=== PATIENT | female | born 1935 | race Caucasian/White ===

== ENCOUNTER 2016-07-08 15:18 | Inpatient (IN) | payer MEDICARE ==
--- NOTE | 2016-07-08 15:29 | ER Document Report ---
ED Medical Screen (RME) - General Stated Complaint: ABDOMINAL PAIN,CHEST PAIN Mode of Arrival: Ambulatory Information source: Patient Notes: pt c/o indigestion. Pt reports pain to midsternal epigastric area. Pt with labored resp. Pt vomiting in triage. hx: HTN, anxiety, fibro Physical Exam - Abdominal Tenderness: Tender - epig
--- NOTE | 2016-07-08 16:16 | ER Document Report ---
ED GI/ - General Time seen by provider: 15:55 Mode of Arrival: Ambulatory Information source: Patient TRAVEL OUTSIDE OF THE [place] IN LAST 30 DAYS: No - HPI Patient complains to provider of: Abdominal pain, Other - Acute Indigestion Onset: This morning Location: Epigastric Associated symptoms: Other - see above <TOBIAS VELEZ - Last Filed: 07/08/16 16:52> <ANGELIA MAIN - Last Filed: 07/08/16 20:38> <DAIANA ARCE - Last Filed: 07/09/16 01:04> - General Chief Complaint: Epigastric Pain Stated Complaint: ABDOMINAL PAIN,CHEST PAIN Notes: 80 year old female with history of hypertension and polyps presents to the ED complaining of "acute indigestion" that started this morning and has gotten progressively worse. Patient states that her bowels "feel raw" and that her stomach is in a "knot". Patient states that she doesn't feel like eating anything and explains that she hasn't had anything to eat today. Patient is also experiencing epigastric abdominal pain, intermittent diarrhea and constipation, and vomiting (in the ED), but denies nausea and shortness of breath. Patient explains that she felt "slightly" better after vomiting. Patient 's last bowel movement was this morning. Patient additionally complains of eye pain secondary to a staph infection. Patient was given steroid eye drops 1 week ago, but to no relief. Patient denies any cardiac history, cholecystectomy, or diabetes. Patient has a surgical history of an appendectomy, hysterectomy, and vertebral fusion. (TOBIAS VELEZ) Past Medical History - General Information source: Patient - Social History Smoking Status: Current Every Day Smoker Cigarette use (# per day): Yes - 0.5-0.75 ppd Family History: Reviewed & Not Pertinent Patient has suicidal ideation: No Patient has homicidal ideation: No - Past Medical History Cardiac Medical History: Reports: Hx Hypercholesterolemia, Hx Hypertension Denies: Hx Heart Attack Pulmonary Medical History: Reports: Hx Pneumonia Endocrine Medical History: Denies: Hx Diabetes Mellitus Type 2 GI Medical History: Reports: Hx Gastroesophageal Reflux Disease Past Surgical History: Reports: Hx Appendectomy, Hx Hysterectomy, Hx Orthopedic Surgery - BACK X 2. Denies: Hx Cholecystectomy <TOBIAS VELEZ - Last Filed: 07/08/16 16:52> Review of Systems - Review of Systems Constitutional: No symptoms reported EENT: No symptoms reported Cardiovascular: No symptoms reported Respiratory: No symptoms reported. denies: Short of breath Gastrointestinal: See HPI, Abdominal pain, Diarrhea, Vomiting, Constipation. denies: Nausea Genitourinary: No symptoms reported Female Genitourinary: No symptoms reported Musculoskeletal: No symptoms reported Skin: No symptoms reported Hematologic/Lymphatic: No symptoms reported Neurological/Psychological: No symptoms reported <TOBIAS VEELZ - Last Filed: 07/08/16 16:52> Physical Exam - General General appearance: Alert In distress: None - HEENT Head: Normocephalic, Atraumatic Eyes: Normal Extraocular movements intact: Yes Pupils: PERRL - Respiratory Respiratory status: No respiratory distress Breath sounds: Normal - Cardiovascular Rhythm: Regular Heart sounds: Normal auscultation Pulses: Normal: Radial, Posterior tibial, Dorsalis pedis Normal capillary refill: Yes - Abdominal Inspection: Normal Distension: No distension Tenderness: Nontender - no RUQ tenderness to palpation, Tender - mild epigastric tenderness to palpation. No: Ceron's sign - Back Back: Normal - Extremities General upper extremity: Normal inspection, Normal ROM General lower extremity: Normal inspection, Normal ROM - Neurological Neuro grossly intact: Yes Cognition: Normal Orientation: AAOx4 Hamilton Coma Scale Eye Opening: Spontaneous [place] Coma Scale Verbal: Oriented [place] Coma Scale Motor: Obeys Commands Merline Coma Scale Total: 15 Speech: Normal - Psychological Associated symptoms: Normal affect, Normal mood - Skin Skin Temperature: Warm Skin Moisture: Dry Skin Color: Normal <TOBIAS VELEZ - Last Filed: 07/08/16 16:52> <ANGELIA MAIN - Last Filed: 07/08/16 20:38> <DAIANA ARCE - Last Filed: 07/09/16 01:04> - Vital signs Vitals: Temp Pulse Resp BP Pulse Ox 98.0 F 98 20 144/91 H 98 07/08/16 15:28 07/08/16 15:28 07/08/16 15:28 07/08/16 15:28 07/08/16 15:28 (TOBIAS VELEZ) (ANGELIA MAIN) (DAIANA ARCE) - Cardiovascular Notes: Good perfusion distally with equal bilateral pulses. (TOBIAS VELEZ) Course - Laboratory Result Diagrams: 07/08/16 16:20 07/08/16 16:20 <TOBIAS VELEZ - Last Filed: 07/08/16 16:52> - Laboratory Result Diagrams: 07/08/16 16:20 07/08/16 16:20 <ANGELIA MAIN - Last Filed: 07/08/16 20:38> - Laboratory Result Diagrams: 07/08/16 16:20 07/08/16 16:20 <DAIANA ARCE - Last Filed: 07/09/16 01:04> - Re-evaluation Re-evalutation: 07/08/16 20:38 I personally performed the services described in the documentation, reviewed and edited the documentation which was dictated to my scribe in my presence, and it accurately records my words and actions. Patient seen and evaluated for epigastric abdominal pain rather abrupt onset this afternoon not chest pain not shortness of breath some improvement with GI cocktail tenderness in the epigastrium mild right upper quadrant no guarding rebound rigidity or peritoneal signs on serial abdominal examination white count elevation of 20,000 no urinary tract infection CT scan shows a tiny gallstone no free air questionable renal cyst. Dr. Rios contacted once gallbladder ultrasound which were ordering at this point pain control. To come and evaluate the patient. Signing out for disposition to Dr. Prince likely pending admission. (ANGELIA MAIN) 07/09/16 01:02 I reassessed the patient and found her awake, shifting in the bed and appearing somewhat uncomfortable. She told me "I just can't get comfortable with this abdominal pain". Her lactate is noted be normal. Repeat abdominal exam does show diffuse upper quadrant abdominal pain without any focal tenderness the right upper quadrant, epigastrium or left upper quadrant. All quadrants in the upper regions appear equally uncomfortable and she does have some mild left CVA tenderness. Vitals at the time of my assessment to hypertension but are otherwise unremarkable. Review of her laboratories does demonstrate a prominent leukocytosis but again is otherwise unremarkable. Given her ongoing abdominal pain and unclear etiology at this time, our on-call surgeon Dr. Roberts has agreed to admit this patient for observation. (DAIANA ARCE) - Vital Signs Vital signs: Temp Pulse Resp BP Pulse Ox 98.0 F 89 22 H 175/79 H 95 07/08/16 15:28 07/08/16 18:48 07/08/16 19:16 07/08/16 19:16 07/08/16 19:56 (TOBIAS VELEZ) (ANGELIA MAIN) (DAIANA ARCE) - Laboratory Laboratory results interpreted by me: 07/08/16 07/08/16 07/08/16 16:20 16:20 19:42 WBC 20.4 H Seg Neuts % (Manual) 90 H Band Neutrophils % 1 L Lymphocytes % (Manual) 7 L Monocytes % (Manual) 2 L Abs Neuts (Manual) 18.6 H Carbon Dioxide 20 L Glucose 168 H Urine Protein 30 H Urine Glucose (UA) 50 H (ANGELIA MAIN) (DAIANA ARCE) Discharge <TOBIAS VELEZ - Last Filed: 07/08/16 16:52> <ANGELIA MAIN - Last Filed: 07/08/16 20:38> - Discharge [facility] <DAIANA ARCE - Last Filed: 07/09/16 01:04> - Discharge Clinical Impression: Pain of upper abdomen Condition: Fair Disposition: ADMITTED OBSERVATION Scribe Documentation - Scribe Written by Scribe:: Nury Miller, 07/08/2016 17:06 acting as scribe for :: Renny <TOBIAS VELEZ - Last Filed: 07/08/16 16:52>
[2016-07-08] MEDS ORDERED: MAG HYDROX/AL HYDROX/SIMETH SUSP 30 ML UDCUP PO ONE (16:17)
[2016-07-08] MEDS ORDERED: LIDOCAINE 2% VISCOUS SOLN 20 ML UDCUP PO ONE (16:17)
[2016-07-08] MEDS ORDERED: METOCLOPRAMIDE HCL ORAL SOLN 10 MG/10 ML UDCUP PO ONE (16:17)
[2016-07-08] MEDS ORDERED: ONDANSETRON HCL INJ/PF 4 MG/2 ML SDV IV ONE (16:22)
[2016-07-08 16:35] LABS: HEMATOCRIT 38.9 % (36.0-47.0); HEMOGLOBIN 12.8 g/dL (12.0-15.5); HGB HCT DIFFERENCE -0.5; MEAN CORPUSCULAR HEMOGLOBIN 27.9 pg (27.0-33.4); MEAN CORPUSCULAR HGB CONC 32.8 g/dL (32.0-36.0); MEAN CORPUSCULAR VOLUME 85 fl (80-97); RED BLOOD COUNT 4.59 10^6/uL (3.72-5.28); WHITE BLOOD COUNT 20.4 10^3/uL (4.0-10.5)
[2016-07-08 16:54] LABS: ALANINE AMINOTRANSFERASE 24 U/L (9-52); ALBUMIN 4.5 g/dL (3.5-5.0); ALKALINE PHOSPHATASE 88 U/L (38-126); ANION GAP 17 (5-19); ASPARTATE AMINO TRANSFERASE 20 U/L (14-36); BILIRUBIN,TOTAL 0.5 mg/dL (0.2-1.3); BLOOD UREA NITROGEN 11 mg/dL (7-20); CALCIUM 9.3 mg/dL (8.4-10.2); CARBON DIOXIDE 20 mmol/L (22-30); CHLORIDE 102 mmol/L (98-107); CREATINE KINASE 63 U/L (30-135); CREATININE RESULT 0.54 mg/dL (0.52-1.25); GLUCOSE 168 mg/dL (75-110); POTASSIUM 3.6 mmol/L (3.6-5.0); SODIUM 139.2 mmol/L (137-145); TOTAL PROTEIN 7.3 g/dL (6.3-8.2)
[2016-07-08 16:56] LABS: BAND NEUTROPHILS % (MANUAL) 1 % (3-5); BASOPHILS % (MANUAL) 0 % (0-2); EOSINOPHILS % (MANUAL) 0 % (0-6); LYMPHOCYTES % (MANUAL) 7 % (13-45); RBC MORPHOLOGY COMMENT NORMO-CYTIC/CHROMIC; TOTAL CELLS COUNTED 100
[2016-07-08 17:11] LABS: CREATINE KINASE MB 0.81 ng/mL (<4.55); TROPONIN I < 0.012 ng/mL
[2016-07-08 20:05] LABS: APPEARANCE,URINE CLEAR; BILIRUBIN,URINE NEGATIVE (NEGATIVE); GLUCOSE, URINE 50 mg/dL (NEGATIVE); KETONES,URINE NEGATIVE (NEGATIVE); LEUKOCYTE ESTERASE,URINE NEGATIVE (NEGATIVE); NITRITE,URINE NEGATIVE (NEGATIVE); PROTEIN,URINE 30 mg/dL (NEGATIVE); URINE SPECIFIC GRAVITY 1.027; UROBILINOGEN,URINE NEGATIVE mg/dL (<2.0)
[2016-07-08] MEDS ORDERED: FENTANYL CITRATE INJ/PF 100 MCG/2 ML AMPUL IV ONE (20:41)
--- NOTE | 2016-07-08 22:44 | EKG REPORT ---
SEVERITY:- ABNORMAL ECG - SINUS RHYTHM NONSPECIFIC ST-T CHANGES ANTEROLATERAL LEADS. : Confirmed by: Jorge L Melton MD 08-Jul-2016 22:44:10
[2016-07-09] MEDS ORDERED: LIDOCAINE 2% VISCOUS SOLN 20 ML UDCUP PO ONE (00:53)
[2016-07-09] MEDS ORDERED: METOCLOPRAMIDE HCL ORAL SOLN 10 MG/10 ML UDCUP PO ONE (00:53)
[2016-07-09] MEDS ORDERED: MAG HYDROX/AL HYDROX/SIMETH SUSP 30 ML UDCUP PO ONE (00:53)
[2016-07-09] MEDS: ONDANSETRON HCL INJ/PF 4 MG/2 ML SDV IV PRN ×2 (05:18→11:47)
[2016-07-09] MEDS: MORPHINE SULFATE 10 MG/ML INJ IV PRN ×2 (05:19→11:47)
[2016-07-09] MEDS ORDERED: ERTAPENEM SODIUM 1 GM in NORMAL SALINE 50 ML IV ONE ×2 (05:30→11:15)
[2016-07-09] MEDS: METRONIDAZOLE 500 MG/NS RTU 100 ML IV SCH ×3 (06:53→21:53)
[2016-07-09 08:00] LABS: MEAN CORPUSCULAR HEMOGLOBIN 28.1 pg (27.0-33.4); MEAN CORPUSCULAR HGB CONC 33.4 g/dL (32.0-36.0); MEAN CORPUSCULAR VOLUME 84 fl (80-97); RED BLOOD COUNT 4.64 10^6/uL (3.72-5.28); RED CELL DISTRIBUTION WIDTH 14.1 % (11.5-14.0)
[2016-07-09 08:16] LABS: ALANINE AMINOTRANSFERASE 29 U/L (9-52); ALBUMIN 4.1 g/dL (3.5-5.0); ALKALINE PHOSPHATASE 89 U/L (38-126); ANION GAP 14 (5-19); ASPARTATE AMINO TRANSFERASE 19 U/L (14-36); BILIRUBIN,TOTAL 0.6 mg/dL (0.2-1.3); BLOOD UREA NITROGEN 11 mg/dL (7-20); CALCIUM 9.3 mg/dL (8.4-10.2); CARBON DIOXIDE 26 mmol/L (22-30); CHLORIDE 98 mmol/L (98-107); CREATININE RESULT 0.58 mg/dL (0.52-1.25); GLUCOSE 131 mg/dL (75-110); LIPASE 99.7 U/L (23-300); MAGNESIUM 2.2 mg/dL (1.6-2.3); PHOSPHORUS 3.6 mg/dL (2.5-4.5); POTASSIUM 3.6 mmol/L (3.6-5.0); SODIUM 138.4 mmol/L (137-145)
[2016-07-09 08:46] LABS: THYROID STIMULATING HORMONE 1.69 uIU/mL (0.47-4.68)
[2016-07-09] MEDS: PANTOPRAZOLE SODIUM 40 MG VIAL IV SCH ×2 (09:22→21:53)
[2016-07-09] MEDS ORDERED: ERTAPENEM SODIUM 1 GM in NORMAL SALINE 50 ML IV SCH ×2 (10:00→22:00)
--- NOTE | 2016-07-09 10:18 | PDOC H&P ---
History of Present Illness Admission Date/PCP: 07/09/16 01:04 History of Present Illness: CHRISTIANNE YO is a 80 year old white female with dementia, hyperlipidemia, hypertension, migraines, GERD, vertigo, history of esophagitis, history of pneumonia, hearing loss, lifelong smoker with COPD/asthma. Her history is difficult to obtain due to memory loss. She reports her confusion and memory loss tends to vacillate depending upon whether she is tired or sick. She reports that she's had abdominal problems since adolescence. She reports that vacillating diarrhea and constipation is typical for her. She reports intermittent epigastric and left upper quadrant abdominal pain as well as reflux that has become worse in recent years. She reports that on 07/07/2016 she had [employer] and began having epigastric and left upper quadrant abdominal pain. She then proceeded to have feelings of constipation but then diarrhea. She reports the pain is 8 out of 10. The pain continued throughout the day on 07/08/2016. She presented the emergency room. The pain was constant. It had a burning quality to it. She was also nauseated and vomited in the hospital. She had subjective fevers and chills. CT scan was done which failed to show any specific acute problems. Small gallstone was seen in the gallbladder. She was given 2 GI cocktails which she reports did not relieve the pain. Right upper quadrant ultrasound was performed which did not reveal any acute cholecystitis. She did have a leukocytosis of 20,000. Surgery was consulted for admission and further workup of epigastric and left upper quadrant abdominal pain. Her abdominal history includes a partial colectomy many years ago for what was believed to be a cancerous lesion but turned out to be benign, per her report. She also underwent EGD with diagnosis of reflux esophagitis. She underwent hysterectomy as well. She reports occasional leg swelling, not worse than usual. She reports balance issues which are chronic and related to her vertigo. She also reports that she had eye surgery 6 months ago and 2 weeks ago was put on a short four-day burst and taper of steroids for some residual inflammation of her eyes. Past Medical History Cardiac Medical History: Reports: Hyperlipidema, Hypertension Denies: Myocardial Infarction Pulmonary Medical History: Reports: Asthma, Chronic Obstructive Pulmonary Disease (COPD), Pneumonia EENT Medical History: Reports: Other - Vertigo Neurological Medical History: Reports: Migraine Denies: Ischemic CVA Endocrine Medical History: Denies: Diabetes Mellitus Type 2 GI Medical History: Reports: Gastroesophageal Reflux Disease Psychiatric Medical History: Reports: Tobacco Dependency Past Surgical History Past Surgical History: Reports: Appendectomy, Hysterectomy, Orthopedic Surgery - BACK X 2, Other - Partial colectomy, I surgery, EGD Denies: Cholecystectomy Social History Information Source: Patient Lives with: Alone - In [place] Smoking Status: Current Every Day Smoker Cigarettes Packs Per Day: 0.7 Frequency of Alcohol Use: None Hx Recreational Drug Use: No Drugs: None Hx Prescription Drug Abuse: No Family History Family History: Hypertension, Malignancy Parental Family History Reviewed: Yes Children Family History Reviewed: Yes Sibling(s) Family History Reviewed.: Yes Medication/Allergy Allergies/Adverse Reactions: Penicillins Allergy (Verified 07/09/16 03:55) Sulfa (Sulfonamide Antibiotics) Allergy (Verified 07/09/16 03:55) Review of Systems All systems: reviewed and no additional remarkable complaints except as stated Physical Exam Vital Signs: Temp Pulse Resp BP Pulse Ox 97.6 F 89 14 175/78 H 91 L 07/09/16 03:54 07/08/16 18:48 07/09/16 02:03 07/09/16 03:01 07/09/16 03:01 General appearance: PRESENT: no acute distress Head exam: PRESENT: normocephalic Eye exam: PRESENT: EOMI Mouth exam: PRESENT: tongue midline Teeth exam: PRESENT: other - Upper and lower dentures Neck exam: ABSENT: JVD, lymphadenopathy, tenderness, thyromegaly Respiratory exam: PRESENT: other - Mild left upper coarse lung sounds and overall decreased sounds associated with emphysematous/obstructive change Cardiovascular exam: PRESENT: RRR GI/Abdominal exam: PRESENT: soft, tenderness - Left upper quadrant and epigastric pain with some radiation to the right posterior costovertebral angle.. ABSENT: distended, guarding, Ceron's sign, rebound Extremities exam: ABSENT: pedal edema Musculoskeletal exam: PRESENT: normal inspection. ABSENT: deformity Neurological exam: PRESENT: alert, other - Mild dementia with memory deficits. Unable to remember medications. She recalls most history with multiple prompts and efforts to clarify inconsistencies, but unable to recall timing or specifics of certain past surgeries or medical treatment. Psychiatric exam: PRESENT: appropriate affect, normal mood Focused psych exam: ABSENT: psychomotor agitation Skin exam: ABSENT: jaundice, rash Results Impressions: Chest X-Ray 07/08/16 15:26 IMPRESSION: NO ACUTE RADIOGRAPHIC FINDING IN THE CHEST. Abdomen/Pelvis CT 07/08/16 16:22 IMPRESSION: Tiny gallstone. Left renal cyst is noted above. Other findings as noted above Abdomen Ultrasound 07/08/16 20:42 IMPRESSION: Findings consistent with a gallstone. No other significant findings. Status: Image reviewed by me Assessment & Plan - Diagnosis (1) Epigastric abdominal pain of unknown etiology Is this a current diagnosis for this admission?: YesPlan: Differential diagnosis includes peptic ulcer disease/gastritis, symptomatic cholelithiasis, hepatic or pancreatic etiology. I reviewed CT scan and right upper quadrant ultrasound images as well as radiologist report. Benign- appearing kidney cyst and small gallstones were seen. No acute pathology. She did not respond well to a GI cocktail, in fact she said it made the pain worse. Leukocytosis of 20,000. We will admit, start IV Protonix and IV antibiotics, make her nothing by mouth, give IV fluids, SCDs, ambulate, incentive spirometer , recheck labs. We will consider upper GI with small bowel follow-through versus a HIDA scan depending on her symptoms and lab results. Hospitalist consult to manage multiple comorbidities. Her lung disease is undiagnosed/underdiagnosed. She reports taking inhaler but cannot remember which one and cannot provide this specifics of whether her lung disease is COPD versus emphysema versus adenoma versus combination. She does have history of multiple bouts of pneumonia. (2) Left upper quadrant pain Is this a current diagnosis for this admission?: Yes (3) GERD (gastroesophageal reflux disease) Qualifiers: Esophagitis presence: with esophagitis Qualified Code(s): K21.0 - Gastro-esophageal reflux disease with esophagitis Is this a current diagnosis for this admission?: Yes (4) Hypertension Is this a current diagnosis for this admission?: Yes (5) Hyperlipidemia Is this a current diagnosis for this admission?: Yes (6) History of pneumonia Is this a current diagnosis for this admission?: Yes (7) Moderate cigarette smoker (10-19 per day) Is this a current diagnosis for this admission?: Yes (8) Vertigo Is this a current diagnosis for this admission?: Yes (9) Migraines Is this a current diagnosis for this admission?: Yes
[2016-07-09] MEDS: NICOTINE 21 MG/24 HR PATCH.TD24 TD PRN (10:59)
[2016-07-09] MEDS: RINGERS SOLUTION,LACTATED 1,000 ML IV PRN ×2 (10:59→21:53)
[2016-07-09] MEDS ORDERED: HYDRALAZINE HCL INJ/PF 20 MG/1 ML SDV IV PRN (15:29)
--- NOTE | 2016-07-09 15:31 | PDOC CONSULTATION ---
Consultation Consult Date: 07/09/16 Attending physician:: SURGICAL SURGICALIST MD Consult reason:: To aid in the medical management of the patient with epigastric pain. History of Present Illness Admission Date/PCP: 07/09/16 04:27 Patient complains of: Epigastric pain History of Present Illness: CHRISTIANNE YO is a 80 year old white female with dementia, hyperlipidemia, hypertension, migraines, GERD, vertigo, history of esophagitis, history of pneumonia, hearing loss, lifelong smoker with COPD/asthma. Her history is difficult to obtain due to memory loss. She reports her confusion and memory loss tends to vacillate depending upon whether she is tired or sick. She reports that she's had abdominal problems since adolescence. She reports that vacillating diarrhea and constipation is typical for her. She reports intermittent epigastric and left upper quadrant abdominal pain as well as reflux that has become worse in recent years. She reports that on 07/07/2016 she had [employer] and began having epigastric and left upper quadrant abdominal pain. She then proceeded to have feelings of constipation but then diarrhea. She reports the pain is 8 out of 10. The pain continued throughout the day on 07/08/2016. She presented the emergency room. The pain was constant. It had a burning quality to it. She was also nauseated and vomited in the hospital. She had subjective fevers and chills. CT scan was done which failed to show any specific acute problems. Small gallstone was seen in the gallbladder. She was given 2 GI cocktails which she reports did not relieve the pain. Right upper quadrant ultrasound was performed which did not reveal any acute cholecystitis. She did have a leukocytosis of 20,000. Surgery was consulted for admission and further workup of epigastric and left upper quadrant abdominal pain. Her abdominal history includes a partial colectomy many years ago for what was believed to be a cancerous lesion but turned out to be benign, per her report. She also underwent EGD with diagnosis of reflux esophagitis. She underwent hysterectomy as well. She reports occasional leg swelling, not worse than usual. She reports balance issues which are chronic and related to her vertigo. She also reports that she had eye surgery 6 months ago and 2 weeks ago was put on a short four-day burst and taper of steroids for some residual inflammation of her eyes. MEDICATIONS: The medications listed in this document may have been auto- populated from previous contact and may not been verified or reconciled. This may not be an accurate reflection of the patient's home medication(s); however, authors are unable to edit or delete the medications listed in this document as "home medications". Past Medical History Cardiac Medical History: Reports: Hyperlipidema, Hypertension Pulmonary Medical History: Reports: Asthma, Chronic Obstructive Pulmonary Disease (COPD), Pneumonia EENT Medical History: Reports: Other - Vertigo Neurological Medical History: Reports: Migraine GI Medical History: Reports: Gastroesophageal Reflux Disease Psychiatric Medical History: Reports: Tobacco Dependency Past Surgical History Past Surgical History: Reports: Appendectomy, Hysterectomy, Orthopedic Surgery - BACK X 2, Other - Partial colectomy, I surgery, EGD Social History Information Source: Patient Occupation: Retired Lives with: Alone - In [place] Smoking Status: Current Every Day Smoker Cigarettes Packs Per Day: 0.7 Number of Years Smokin Frequency of Alcohol Use: None Hx Recreational Drug Use: No Drugs: None Hx Prescription Drug Abuse: No - Advance Directive Resuscitation Status: Full Code Surrogate healthcare decision maker:: Daughter Family History Family History: Reviewed & Not Pertinent, Hypertension, Malignancy Parental Family History Reviewed: Yes Children Family History Reviewed: Yes Sibling(s) Family History Reviewed.: Yes Medication/Allergy Allergies/Adverse Reactions: Penicillins Allergy (Verified 07/09/16 03:55) Sulfa (Sulfonamide Antibiotics) Allergy (Verified 07/09/16 03:55) Review of Systems Constitutional: ABSENT: chills, fever(s), headache(s), weight gain, weight loss Eyes: ABSENT: visual disturbances Ears: ABSENT: hearing changes Cardiovascular: ABSENT: chest pain, dyspnea on exertion, edema, orthropnea, palpitations Respiratory: ABSENT: cough, hemoptysis Gastrointestinal: PRESENT: abdominal pain, heartburn, nausea, vomiting. ABSENT : constipation, diarrhea, dysphagia, hematemesis, hematochezia Genitourinary: ABSENT: dysuria, hematuria Musculoskeletal: ABSENT: joint swelling Integumentary: ABSENT: rash, wounds Neurological: ABSENT: abnormal gait, abnormal speech, confusion, dizziness, focal weakness, syncope Psychiatric: ABSENT: anxiety, depression, homidical ideation, suicidal ideation Endocrine: ABSENT: cold intolerance, heat intolerance, polydipsia, polyuria Hematologic/Lymphatic: ABSENT: easy bleeding, easy bruising Physical Exam Vital Signs: Temp Pulse Resp BP Pulse Ox 98.2 F 78 19 168/82 H 96 07/09/16 11:32 07/09/16 11:32 07/09/16 11:32 07/09/16 11:32 07/09/16 11:32 Intake & Output 07/07/16 07/08/16 07/09/16 23:59 23:59 23:59 Intake Total 0 Balance 0 General appearance: PRESENT: no acute distress, cooperative, well-developed, well-nourished Head exam: PRESENT: atraumatic, normocephalic Eye exam: PRESENT: conjunctiva pink, EOMI, PERRLA. ABSENT: scleral icterus Ear exam: PRESENT: normal external ear exam Mouth exam: PRESENT: moist, tongue midline Neck exam: ABSENT: carotid bruit, JVD, lymphadenopathy, thyromegaly Respiratory exam: PRESENT: clear to auscultation brando. ABSENT: rales, rhonchi, wheezes Cardiovascular exam: PRESENT: RRR. ABSENT: diastolic murmur, rubs, systolic murmur Pulses: PRESENT: normal dorsalis pedis pul Vascular exam: PRESENT: normal capillary refill GI/Abdominal exam: PRESENT: firm, normal bowel sounds, soft, tenderness - Left upper quadrant and epigastrium. ABSENT: distended, guarding, mass, organolmegaly, rebound Rectal exam: PRESENT: deferred Extremities exam: PRESENT: full ROM. ABSENT: calf tenderness, clubbing, pedal edema Neurological exam: PRESENT: alert - A little delayed, very hard of hearing, awake, oriented to person, oriented to place, oriented to time, oriented to situation, CN II-XII grossly intact. ABSENT: motor sensory deficit Psychiatric exam: PRESENT: appropriate affect, normal mood. ABSENT: homicidal ideation, suicidal ideation Skin exam: PRESENT: dry, intact, warm. ABSENT: cyanosis, rash Results Laboratory Results: 07/09/16 07:50 07/09/16 07:50 07/09/16 07/09/16 07/09/16 07:50 07:50 07:50 WBC 18.0 H RBC 4.64 Hgb 13.0 Hct 39.0 MCV 84 MCH 28.1 MCHC 33.4 RDW 14.1 H Plt Count 296 Sodium 138.4 Potassium 3.6 Chloride 98 Carbon Dioxide 26 Anion Gap 14 BUN 11 Creatinine 0.58 Est GFR ( Amer) > 60 Est GFR (Non-Af Amer) > 60 Glucose 131 H Calcium 9.3 Phosphorus 3.6 Magnesium 2.2 Total Bilirubin 0.6 AST 19 ALT 29 Alkaline Phosphatase 89 Total Protein 7.0 Albumin 4.1 Lipase 99.7 TSH 1.69 Free T4 1.19 Impressions: Chest X-Ray 07/08/16 15:26 IMPRESSION: NO ACUTE RADIOGRAPHIC FINDING IN THE CHEST. Abdomen/Pelvis CT 07/08/16 16:22 IMPRESSION: Tiny gallstone. Left renal cyst is noted above. Other findings as noted above Abdomen Ultrasound 07/08/16 20:42 IMPRESSION: Findings consistent with a gallstone. No other significant findings. Assessment & Plan - Diagnosis (1) Epigastric abdominal pain of unknown etiology Is this a current diagnosis for this admission?: YesPlan: Management as per surgery (2) GERD (gastroesophageal reflux disease) Qualifiers: Esophagitis presence: with esophagitis Qualified Code(s): K21.0 - Gastro-esophageal reflux disease with esophagitis Is this a current diagnosis for this admission?: YesPlan: Will continue PPI therapy (4) Hyperlipidemia Qualifiers: Hyperlipidemia type: unspecified Qualified Code(s): E78.5 - Hyperlipidemia, unspecified Is this a current diagnosis for this admission?: YesPlan: This is reported history however upon review of the external medication list appear the patient has been taking any medications. (5) Hypertension Qualifiers: Hypertension type: unspecified secondary hypertension Qualified Code (s): I15.9 - Secondary hypertension, unspecified; I15 - Secondary hypertension Is this a current diagnosis for this admission?: YesPlan: Again upon review of the external medication list does not appear the patient has been taking any medications for this. However were waiting for family to possibly bring medications for reconciliation. Will add IV when necessary coverage. (6) Migraines Is this a current diagnosis for this admission?: No (8) Vertigo Is this a current diagnosis for this admission?: YesPlan: Currently asymptomatic (9) Tobacco dependency Is this a current diagnosis for this admission?: YesPlan: Spent 3 minutes discussing smoking cessation education. The patient declines any pharmacological intervention at this time however will add a PRN nicotine patch. - Time Time Spent with patient: on this visit including assessment, plan, physical examination, and patient education is 45 minutes. Time Spent: 50 to 70 Minutes Medications reviewed and adjusted accordingly: Yes Anticipated discharge: Home Within: Other Disposition: The patient is a full code. Pending patient's symptomatology and diagnostic findings will reevaluate in the a.m.
[2016-07-09] MEDS ORDERED: TRAMADOL HCL 50 MG TABLET PO PRN (17:49)
[2016-07-09] MEDS ORDERED: ACETAMINOPHEN 325 MG TABLET PO PRN (17:51)
--- NOTE | 2016-07-09 17:52 | PDOC PROGRESS REPORT ---
Subjective Progress Note for:: 07/09/16 Subjective:: Patient continues to complain of epigastric and left upper quadrant pain. Reports nausea, but did not vomit. Denies BM or flatus. Her daughter has arrived from [place]. Daughter reports that the patient smokes more than she reports. Daughter reports she is aware of her mother's health issues including dementia, is concerned that her mother minimizes her issues and is occasionally noncompliant, and reports that she has been trying unsuccessfully to convince her mother to move close to her in [place]. Physical Exam Vital Signs: Temp Pulse Resp BP Pulse Ox 98.1 F 78 20 159/79 H 91 L 07/09/16 16:07 07/09/16 16:07 07/09/16 16:07 07/09/16 16:07 07/09/16 16:07 Intake & Output 07/08/16 07/09/16 07/10/16 06:59 06:59 06:59 Intake Total 0 Balance 0 General appearance: PRESENT: obese Head exam: PRESENT: normocephalic Eye exam: PRESENT: EOMI Ear exam: PRESENT: other - Poor hearing despite hearing aids. Mouth exam: PRESENT: tongue midline Teeth exam: PRESENT: other - Upper and lower dentures GI/Abdominal exam: PRESENT: distended, soft, tenderness - Moderate to severe tenderness in epigastric and right upper quadrant, but not peritoneal signs per se. ABSENT: guarding Neurological exam: PRESENT: alert, other - Mild to moderate memory and cognitive deficits, compounded by her poor hearing Results Laboratory Results: 07/09/16 07:50 07/09/16 07:50 07/09/16 07/09/16 07/09/16 07:50 07:50 07:50 WBC 18.0 H RBC 4.64 Hgb 13.0 Hct 39.0 MCV 84 MCH 28.1 MCHC 33.4 RDW 14.1 H Plt Count 296 Sodium 138.4 Potassium 3.6 Chloride 98 Carbon Dioxide 26 Anion Gap 14 BUN 11 Creatinine 0.58 Est GFR ( Amer) > 60 Est GFR (Non-Af Amer) > 60 Glucose 131 H Calcium 9.3 Phosphorus 3.6 Magnesium 2.2 Total Bilirubin 0.6 AST 19 ALT 29 Alkaline Phosphatase 89 Total Protein 7.0 Albumin 4.1 Lipase 99.7 TSH 1.69 Free T4 1.19 Impressions: Chest X-Ray 07/08/16 15:26 IMPRESSION: NO ACUTE RADIOGRAPHIC FINDING IN THE CHEST. Abdomen/Pelvis CT 07/08/16 16:22 IMPRESSION: Tiny gallstone. Left renal cyst is noted above. Other findings as noted above Abdomen Ultrasound 07/08/16 20:42 IMPRESSION: Findings consistent with a gallstone. No other significant findings. Assessment & Plan - Diagnosis (1) Epigastric abdominal pain of unknown etiology Is this a current diagnosis for this admission?: YesPlan: Still no clear etiology of her pain and elevated white count. White count remains elevated. Continue IV antibiotics, IV fluids, IV Protonix, nothing by mouth status. Upper GI, small bowel follow-through has been ordered. Discussed with radiology. We'll add Tylenol and tramadol for pain, as patient reports some nausea with morphine. (2) Left upper quadrant pain Is this a current diagnosis for this admission?: Yes (3) GERD (gastroesophageal reflux disease) Qualifiers: Esophagitis presence: with esophagitis Qualified Code(s): K21.0 - Gastro-esophageal reflux disease with esophagitis Is this a current diagnosis for this admission?: Yes (4) Hypertension Qualifiers: Hypertension type: unspecified secondary hypertension Qualified Code (s): I15.9 - Secondary hypertension, unspecified; I15 - Secondary hypertension Is this a current diagnosis for this admission?: Yes (5) Hyperlipidemia Qualifiers: Hyperlipidemia type: unspecified Qualified Code(s): E78.5 - Hyperlipidemia, unspecified Is this a current diagnosis for this admission?: Yes (6) History of pneumonia Is this a current diagnosis for this admission?: Yes (7) Moderate cigarette smoker (10-19 per day) Is this a current diagnosis for this admission?: Yes (8) Vertigo Is this a current diagnosis for this admission?: Yes (9) Migraines Is this a current diagnosis for this admission?: No
[2016-07-09] MEDS: ALPRAZOLAM 0.5 MG TABLET PO PRN (22:00)
[2016-07-10 05:21] LABS: ABSOLUTE BASOPHILS # (AUTO) 0.1 10^3/uL (0.0-0.2); ABSOLUTE LYMPHOCYTES (AUTO) 2.5 10^3/uL (0.5-4.7); ABSOLUTE MONOCYTES (AUTO) 1.7 10^3/uL (0.1-1.4); ABSOLUTE NEUT (AUTO) 15.3 10^3/uL (1.7-8.2); BASOPHILS % (AUTO) 0.3 % (0-2); HEMOGLOBIN 12.9 g/dL (12.0-15.5); HGB HCT DIFFERENCE -0.3; LYMPHOCYTES % (AUTO) 12.7 % (13-45); MEAN CORPUSCULAR HEMOGLOBIN 28.2 pg (27.0-33.4); MEAN CORPUSCULAR HGB CONC 33.2 g/dL (32.0-36.0); MEAN CORPUSCULAR VOLUME 85 fl (80-97); MONOCYTES % (AUTO) 8.5 % (3-13); RED BLOOD COUNT 4.59 10^6/uL (3.72-5.28); RED CELL DISTRIBUTION WIDTH 14.1 % (11.5-14.0); SEGMENTED NEUTROPHILS % (AUTO) 78.5 % (42-78); WHITE BLOOD COUNT 19.6 10^3/uL (4.0-10.5)
[2016-07-10] MEDS: METRONIDAZOLE 500 MG/NS RTU 100 ML IV SCH ×3 (06:34→22:43)
[2016-07-10] MEDS: ERTAPENEM SODIUM 1 GM in NORMAL SALINE 50 ML IV SCH (09:37)
[2016-07-10] MEDS: GABAPENTIN 100 MG CAPSULE PO SCH ×3 (09:37→18:38)
[2016-07-10] MEDS: DULOXETINE HCL 30 MG CAPSULE.DR PO SCH (09:38)
[2016-07-10] MEDS: AMLODIPINE BESYLATE 5 MG TABLET PO SCH (09:38)
[2016-07-10] MEDS: PANTOPRAZOLE SODIUM 40 MG VIAL IV SCH ×2 (09:39→22:44)
[2016-07-10] MEDS: LOSARTAN POTASSIUM 50 MG TABLET PO SCH (09:39)
--- NOTE | 2016-07-10 10:23 | PDOC PROGRESS REPORT ---
Subjective Progress Note for:: 07/10/16 Subjective:: The patient is currently up in bed. Daughter present at the bedside and active in the patient's care. The patient states that her symptoms have completely resolved and much improved when she came in. The patient denies any nausea, vomiting, diarrhea, shortness of breath, dizziness, chest pain, heart palpitations, fevers, or chills. The patient's main concern is that she wants to establish primary care provider here in [place]. The patient wanted someone who has a history in geriatrics. The patient has remained afebrile. Blood pressures have been in a good range. The patient voices no other concerns at this time. Review of systems: The rest of the review of systems is negative. Physical Exam Vital Signs: Temp Pulse Resp BP Pulse Ox 98.5 F 86 18 149/74 H 94 07/10/16 04:22 07/10/16 04:22 07/10/16 04:22 07/10/16 04:22 07/10/16 04:22 Intake & Output 07/08/16 07/09/16 07/10/16 23:59 23:59 23:59 Intake Total 730 1393 Balance 730 1393 Weight 69.6 kg General appearance: PRESENT: no acute distress, cooperative, well-developed, well-nourished. ABSENT: disheveled Head exam: PRESENT: atraumatic, normocephalic Eye exam: PRESENT: conjunctiva pink, EOMI, PERRLA. ABSENT: scleral icterus Ear exam: PRESENT: normal external ear exam Mouth exam: PRESENT: moist, tongue midline Neck exam: ABSENT: tracheal deviation, tracheostomy Respiratory exam: PRESENT: symmetrical, unlabored. ABSENT: accessory muscle use , tachypnea Cardiovascular exam: PRESENT: RRR - Per monitor Vascular exam: ABSENT: pallor GI/Abdominal exam: ABSENT: distended, guarding Rectal exam: PRESENT: deferred Extremities exam: ABSENT: clubbing, joint swelling, pedal edema Musculoskeletal exam: PRESENT: ambulatory, normal inspection Neurological exam: PRESENT: alert, awake, oriented to person, oriented to place , oriented to time, oriented to situation, CN II-XII grossly intact Psychiatric exam: PRESENT: appropriate affect, normal mood. ABSENT: homicidal ideation, suicidal ideation Skin exam: PRESENT: dry, intact. ABSENT: cyanosis, rash Results Laboratory Results: 07/10/16 04:00 07/09/16 07:50 07/10/16 04:00 WBC 19.6 H RBC 4.59 Hgb 12.9 Hct 39.0 MCV 85 MCH 28.2 MCHC 33.2 RDW 14.1 H Plt Count 265 Seg Neutrophils % 78.5 H Lymphocytes % 12.7 L Monocytes % 8.5 Eosinophils % 0.0 Basophils % 0.3 Absolute Neutrophils 15.3 H Absolute Lymphocytes 2.5 Absolute Monocytes 1.7 H Absolute Eosinophils 0.0 Absolute Basophils 0.1 Impressions: Chest X-Ray 07/08/16 15:26 IMPRESSION: NO ACUTE RADIOGRAPHIC FINDING IN THE CHEST. Abdomen/Pelvis CT 07/08/16 16:22 IMPRESSION: Tiny gallstone. Left renal cyst is noted above. Other findings as noted above Abdomen Ultrasound 07/08/16 20:42 IMPRESSION: Findings consistent with a gallstone. No other significant findings. Upper GI and Small Bowel X-Ray 07/09/16 00:00 IMPRESSION: 1. Patient had trace aspiration due to decreased mobility, residuals in the esophagus. There is also some gastroesophageal reflux disease. 2. The stomach looks unremarkable. No malrotation. Small-bowel loops look normal as does the proximal colon. Assessment & Plan - Diagnosis (1) Epigastric abdominal pain of unknown etiology Is this a current diagnosis for this admission?: YesPlan: Management as per surgery. It appears the patient may have an acute gastroenteritis. The patient be started on clear liquids today. (2) GERD (gastroesophageal reflux disease) Qualifiers: Esophagitis presence: with esophagitis Qualified Code(s): K21.0 - Gastro-esophageal reflux disease with esophagitis Is this a current diagnosis for this admission?: YesPlan: My home meds will continue PPI therapy (3) Hyperlipidemia Qualifiers: Hyperlipidemia type: unspecified Qualified Code(s): E78.5 - Hyperlipidemia, unspecified Is this a current diagnosis for this admission?: Yes (4) Hypertension Qualifiers: Hypertension type: unspecified secondary hypertension Qualified Code (s): I15.9 - Secondary hypertension, unspecified; I15 - Secondary hypertension Is this a current diagnosis for this admission?: YesPlan: Blood pressures have been in a good range since resuming home medications will continue these. (5) Migraines Is this a current diagnosis for this admission?: No (6) Vertigo Is this a current diagnosis for this admission?: No (7) Tobacco dependency Is this a current diagnosis for this admission?: YesPlan: Will continue nicotine patch. - Time Time Spent with patient: on this followup including assessment, plan, physical examination, specialty collaboration, family meeting and patient education is 25 minutes. Time Spent with patient: 25-34 minutes Medications reviewed and adjusted accordingly: Yes Anticipated discharge: Home Disposition: The patient is a full code. The patient appears to be overall improved and has no pressing medical issues at this time. If the patient's condition should change or if the patient requires surgery please feel free to call us back otherwise the hospitalists will sign off on this consult at this time. I have arranged for the patient have follow-up with her primary care provider in [facility] as per her request. And as always I would like to thank the surgicalist for allowing the hospitalists to participate in the care of this nice patient.
--- NOTE | 2016-07-10 10:28 | PDOC PROGRESS REPORT ---
Subjective Progress Note for:: 07/10/16 Subjective:: Patient states she feels better; got pain medication once last night. sHe states she is hungry. Physical Exam Vital Signs: Temp Pulse Resp BP Pulse Ox 98.5 F 86 18 149/74 H 94 07/10/16 04:22 07/10/16 04:22 07/10/16 04:22 07/10/16 04:22 07/10/16 04:22 Intake & Output 07/09/16 07/10/16 07/11/16 06:59 06:59 06:59 Intake Total 2123 Balance 2123 Weight 69.6 kg General appearance: PRESENT: no acute distress GI/Abdominal exam: PRESENT: other - Abdomen is soft, minimally minimally tender with no localized findings. There are no peritoneal signs. Results Laboratory Results: 07/10/16 04:00 07/09/16 07:50 07/10/16 04:00 WBC 19.6 H RBC 4.59 Hgb 12.9 Hct 39.0 MCV 85 MCH 28.2 MCHC 33.2 RDW 14.1 H Plt Count 265 Seg Neutrophils % 78.5 H Lymphocytes % 12.7 L Monocytes % 8.5 Eosinophils % 0.0 Basophils % 0.3 Absolute Neutrophils 15.3 H Absolute Lymphocytes 2.5 Absolute Monocytes 1.7 H Absolute Eosinophils 0.0 Absolute Basophils 0.1 Impressions: Chest X-Ray 07/08/16 15:26 IMPRESSION: NO ACUTE RADIOGRAPHIC FINDING IN THE CHEST. Abdomen/Pelvis CT 07/08/16 16:22 IMPRESSION: Tiny gallstone. Left renal cyst is noted above. Other findings as noted above Abdomen Ultrasound 07/08/16 20:42 IMPRESSION: Findings consistent with a gallstone. No other significant findings. Upper GI and Small Bowel X-Ray 07/09/16 00:00 IMPRESSION: 1. Patient had trace aspiration due to decreased mobility, residuals in the esophagus. There is also some gastroesophageal reflux disease. 2. The stomach looks unremarkable. No malrotation. Small-bowel loops look normal as does the proximal colon. Assessment & Plan - Diagnosis (1) Epigastric abdominal pain of unknown etiology Is this a current diagnosis for this admission?: YesPlan: 1. Medically improved overnight; leukocytosis persist; exact etiology of patient's symptoms remain elusive ; 2. Given her desire for by mouth intake, and her fairly benign abdominal exam, I suggested we start clear liquids. 3. I spoken with patient's daughter about the patient's clinical status. It is important to remember the patient has fluctuating periods of dementia so she may not be as reliable as she appears . 4. No immediate indication for further diagnostic work at this time. Agree with continued intravenous antibiotics. - Time Time Spent with patient: 15-24 minutes
[2016-07-10] MEDS: ALPRAZOLAM 0.5 MG TABLET PO PRN (23:37)
[2016-07-11] MEDS: METRONIDAZOLE 500 MG/NS RTU 100 ML IV SCH ×2 (05:32→13:05)
--- NOTE | 2016-07-11 10:27 | Physician Advisory Note ---
Physician Advisor ProgressNote .: Pursuant to the plan for [facility], I have reviewed the medical record for this patient. Physician Advisor Statement: Possible documentation opportunities if attending agrees: 1. Please document explicitly what problems you were concerned for on 07/09 (& 07/10) with continued pain 07/09 & continued leukocytosis both days that explains why pt needed to stay in the hospital both days (the differential dx). 2. "SIRS, present on admission, possibly due to " - if you believe this is most likely due to an infectious cause, you'll need to specify if sepsis was ruled in or out. 3. "acute metabolic acidosis on arrival, possibly due to ____" As always, if concerned about any unstable VS or abnormal labs, please comment on them & note what doing about them, & please document each day the potential clinical problems you are concerned could occur if pt not kept in hospital for tx at this time. Discussion: 80yo female w/ chronic co-morbidities including DM-2, GERD, reflux esophagitis, chronic abd problems with alternating diarrhea & constipation (?IBS?), mild-mod dementia, hearing loss, COPD/tobacco abuse, vertigo, migraines, repeated PNA, partial colectomy, eye surgery 6mo ago - presented 07/08 PM to ED w/HR 98, RR22, BP 144/91, WBC 20.4, bicarb 20, level 8/10 RUQ/epigastric abd pain, subjective fever/chills Attending ordered IV ertapenem, IV Flagyl, IV Protonix, IVF @ 125, prn IV morphine, prn IV Zofran, NPO status. Status: Elderly pt with h/o abd problems presented with markedly worsened abd pain with vomiting in ED. Due to fluctuating memory issues, unclear progression of sx: ED note said pt had some improvement with GI cocktail, but attending documented pt reported not only did 2 GI cocktails not help, but seemed to make pain worse. Ct showed tiny gallstone. Pt remained intermittently tachypneic (to 24) & persistently tachycardic 80s- 100s until the AM of 07/09. On 07/09, pt still with mod-severe tenderness in epigastric & RUQ areas, though no peritoneal signs. Lactate WNL. Repeat WBC on 07/09 AM still markedly elevated at 18.0. Attending documented "still no clear etiology for pain & elevated WBC, WBC remains elevated", planned to continue IV abx, IVF, IV Protonix, NPO status, & ordered UGI/SBFT for further eval of abd pain/leukocytosis. Therefore, a 2nd MN was required. He also noted morphine IV caused nausea so would try Tylenol & Tramadol for pain. On 1/2 AM, WBC even worse again at 19.6, but sx much better, pt hungry, abd only minimally tender, so attending recommended starting clear liquids by mouth & continuing IV abx. (Stopped IVF) UGI/SBFT showed trace aspiration, some GERD , only. Overall: Tx in inpatient hospital setting for at least 2 MNs was medically reasonable & necessary to protect pt's health, safety, & medical condition. Appropriate for Inpt status. Thanks for your help with documentation accuracy/specificity improvement! Alexandra Leonard MD [facility] Physician Advisor, Fellow of Hospital Medicine
[2016-07-11] MEDS: GABAPENTIN 100 MG CAPSULE PO SCH ×3 (11:56→17:47)
[2016-07-11] MEDS: AMLODIPINE BESYLATE 5 MG TABLET PO SCH (11:57)
[2016-07-11] MEDS: DULOXETINE HCL 30 MG CAPSULE.DR PO SCH (11:57)
[2016-07-11] MEDS: PANTOPRAZOLE SODIUM 40 MG VIAL IV SCH ×2 (11:58→22:11)
[2016-07-11] MEDS: LOSARTAN POTASSIUM 50 MG TABLET PO SCH (11:58)
[2016-07-11] MEDS: ERTAPENEM SODIUM 1 GM in NORMAL SALINE 50 ML IV SCH (12:03)
--- NOTE | 2016-07-11 15:44 | PDOC PROGRESS REPORT ---
Subjective Progress Note for:: 07/11/16 Subjective:: Patient is feeling better, and she denies nausea, vomiting, fever, she tolerated a clear liquid diet. No bowel movement yesterday. Physical Exam Vital Signs: Temp Pulse Resp BP Pulse Ox 98.0 F 77 16 124/61 100 07/11/16 12:14 07/11/16 12:14 07/11/16 12:14 07/11/16 12:14 07/11/16 12:14 General appearance: PRESENT: no acute distress Head exam: PRESENT: atraumatic, normocephalic GI/Abdominal exam: PRESENT: soft. ABSENT: firm, guarding, rigid, tenderness Rectal exam: PRESENT: deferred Neurological exam: PRESENT: alert Results Impressions: Chest X-Ray 07/08/16 15:26 IMPRESSION: NO ACUTE RADIOGRAPHIC FINDING IN THE CHEST. Abdomen/Pelvis CT 07/08/16 16:22 IMPRESSION: Tiny gallstone. Left renal cyst is noted above. Other findings as noted above Abdomen Ultrasound 07/08/16 20:42 IMPRESSION: Findings consistent with a gallstone. No other significant findings. Upper GI and Small Bowel X-Ray 07/09/16 00:00 IMPRESSION: 1. Patient had trace aspiration due to decreased mobility, residuals in the esophagus. There is also some gastroesophageal reflux disease. 2. The stomach looks unremarkable. No malrotation. Small-bowel loops look normal as does the proximal colon. Assessment & Plan - Diagnosis (1) Epigastric abdominal pain of unknown etiology Is this a current diagnosis for this admission?: YesPlan: Patient is 80 years old female, with with epigastric abdominal pain of uncertain etiology, she is feeling better, she tolerated a clear liquid diet, and she feeling hungry, I reviewed the CT scan with Dr. Mayorga, and it seemed that there is a large fatty polyp in the sigmoid colon, there is no evidence of a large bowel obstruction. Plan: Out of bed, advance diet to full liquid diet, with repeat WBC in the morning to check for leukocytosis, patient would need an outpatient colonoscopy as further plans can be made after the procedure.
[2016-07-11] MEDS: NICOTINE 21 MG/24 HR PATCH.TD24 TD PRN (17:51)
[2016-07-11] MEDS: METRONIDAZOLE 500 MG TABLET PO SCH (22:06)
[2016-07-11] MEDS: ALPRAZOLAM 0.5 MG TABLET PO PRN (22:07)
[2016-07-12] MEDS: METRONIDAZOLE 500 MG TABLET PO SCH (05:24)
[2016-07-12 07:32] LABS: ABSOLUTE EOSINOPHILS # (AUTO) 0.1 10^3/uL (0.0-0.6); ABSOLUTE LYMPHOCYTES (AUTO) 2.3 10^3/uL (0.5-4.7); ABSOLUTE MONOCYTES (AUTO) 0.8 10^3/uL (0.1-1.4); ABSOLUTE NEUT (AUTO) 7.6 10^3/uL (1.7-8.2); BASOPHILS % (AUTO) 0.3 % (0-2); EOSINOPHILS % (AUTO) 1.2 % (0-6); HEMATOCRIT 37.6 % (36.0-47.0); HEMOGLOBIN 12.5 g/dL (12.0-15.5); HGB HCT DIFFERENCE -0.1; LYMPHOCYTES % (AUTO) 21.3 % (13-45); MEAN CORPUSCULAR HEMOGLOBIN 28.1 pg (27.0-33.4); MEAN CORPUSCULAR HGB CONC 33.2 g/dL (32.0-36.0); MEAN CORPUSCULAR VOLUME 84 fl (80-97); MONOCYTES % (AUTO) 7.7 % (3-13); RED BLOOD COUNT 4.45 10^6/uL (3.72-5.28); RED CELL DISTRIBUTION WIDTH 13.6 % (11.5-14.0); SEGMENTED NEUTROPHILS % (AUTO) 69.5 % (42-78); WHITE BLOOD COUNT 10.9 10^3/uL (4.0-10.5)
[2016-07-12 08:34] VITALS: BP 143/70
[2016-07-12] MEDS: LOSARTAN POTASSIUM 50 MG TABLET PO SCH (09:48)
[2016-07-12] MEDS: GABAPENTIN 100 MG CAPSULE PO SCH (09:48)
[2016-07-12] MEDS: DULOXETINE HCL 30 MG CAPSULE.DR PO SCH (09:49)
[2016-07-12] MEDS: AMLODIPINE BESYLATE 5 MG TABLET PO SCH (09:49)
[2016-07-12] MEDS: ERTAPENEM SODIUM 1 GM in NORMAL SALINE 50 ML IV SCH (09:55)
[2016-07-12] MEDS: NICOTINE 21 MG/24 HR PATCH.TD24 TD PRN (10:39)
[2016-07-12] MEDS: ALPRAZOLAM 0.5 MG TABLET PO PRN (10:39)
--- NOTE | 2016-07-12 11:33 | PDOC PROGRESS REPORT ---
Subjective Progress Note for:: 07/12/16 Subjective:: Denies nausea or vomiting. Passing flatus and stool. Tolerating diet. Much less abdominal pain. Eager to go home. Physical Exam Vital Signs: Temp Pulse Resp BP Pulse Ox 97.6 F 75 22 H 143/70 H 92 07/12/16 07:42 07/12/16 07:42 07/12/16 07:42 07/12/16 07:42 07/12/16 07:42 Intake & Output 07/11/16 07/12/16 07/13/16 06:59 06:59 06:59 Intake Total 1100 Balance 1100 Weight 70 kg General appearance: PRESENT: no acute distress, other - Hard of hearing Head exam: PRESENT: normocephalic Eye exam: PRESENT: EOMI Mouth exam: PRESENT: tongue midline GI/Abdominal exam: PRESENT: soft, tenderness - Minimal tenderness to deep palpation in left upper quadrant. ABSENT: distended Neurological exam: PRESENT: alert, oriented to situation Results Laboratory Results: 07/12/16 07:23 07/12/16 07:23 WBC 10.9 H RBC 4.45 Hgb 12.5 Hct 37.6 MCV 84 MCH 28.1 MCHC 33.2 RDW 13.6 Plt Count 266 Seg Neutrophils % 69.5 Lymphocytes % 21.3 Monocytes % 7.7 Eosinophils % 1.2 Basophils % 0.3 Absolute Neutrophils 7.6 Absolute Lymphocytes 2.3 Absolute Monocytes 0.8 Absolute Eosinophils 0.1 Absolute Basophils 0.0 Impressions: Chest X-Ray 07/08/16 15:26 IMPRESSION: NO ACUTE RADIOGRAPHIC FINDING IN THE CHEST. Abdomen/Pelvis CT 07/08/16 16:22 IMPRESSION: Tiny gallstone. Left renal cyst is noted above. Other findings as noted above Abdomen Ultrasound 07/08/16 20:42 IMPRESSION: Findings consistent with a gallstone. No other significant findings. Upper GI and Small Bowel X-Ray 07/09/16 00:00 IMPRESSION: 1. Patient had trace aspiration due to decreased mobility, residuals in the esophagus. There is also some gastroesophageal reflux disease. 2. The stomach looks unremarkable. No malrotation. Small-bowel loops look normal as does the proximal colon. Assessment & Plan - Diagnosis (1) Epigastric abdominal pain of unknown etiology Is this a current diagnosis for this admission?: YesPlan: Pain essentially resolved. WBC 10.9. Tolerating diet. No clear source. Will discharge home on 3 additional days of Flagyl. Appears to have a large polyp or lipoma in the sigmoid colon. Recommended colonoscopy within the next month. She has an established GI/surgery doctor in [place] and just received a follow-up colonoscopy lead her from them. She prefers to follow-up with them rather than in [place]. (2) Left upper quadrant pain Is this a current diagnosis for this admission?: YesPlan: Pain essentially resolved. WBC 10.9. Tolerating diet. No clear source. Will discharge home on 3 additional days of Flagyl. Appears to have a large polyp or lipoma in the sigmoid colon. Recommended colonoscopy within the next month. She has an established GI/surgery doctor in [place] and just received a follow-up colonoscopy lead her from them. She prefers to follow-up with them rather than in [place]. (3) GERD (gastroesophageal reflux disease) Qualifiers: Esophagitis presence: with esophagitis Qualified Code(s): K21.0 - Gastro-esophageal reflux disease with esophagitis Is this a current diagnosis for this admission?: Yes (4) Hypertension Qualifiers: Hypertension type: unspecified secondary hypertension Qualified Code (s): I15.9 - Secondary hypertension, unspecified; I15 - Secondary hypertension Is this a current diagnosis for this admission?: Yes (5) Hyperlipidemia Qualifiers: Hyperlipidemia type: unspecified Qualified Code(s): E78.5 - Hyperlipidemia, unspecified Is this a current diagnosis for this admission?: Yes (6) History of pneumonia Is this a current diagnosis for this admission?: Yes (7) Moderate cigarette smoker (10-19 per day) Is this a current diagnosis for this admission?: Yes (8) Vertigo Is this a current diagnosis for this admission?: No (9) Migraines Is this a current diagnosis for this admission?: No
== END 2016-07-12 12:31 | disposition home or self-care (01) | DRG 392 ==
LOC: ER 15:18 → EH 07-09 01:04 → UNDOADMOB 07-09 01:04 → EH 07-09 04:27 → 4N 07-09 05:40 → OBSVTOIN 07-11 12:04
PROVIDERS: ATTEND Surgery
DX: R10.13 Epigastric pain (principal); R10.12 Left upper quadrant pain; F03.90 Unspecified dementia, unspecified severity, without behavioral disturbance, psychotic disturbance, mood disturbance, and anxiety; E78.5 Hyperlipidemia, unspecified; I10 Essential (primary) hypertension; K21.9 Gastro-esophageal reflux disease without esophagitis; F17.210 Nicotine dependence, cigarettes, uncomplicated; J44.9 Chronic obstructive pulmonary disease, unspecified; G43.909 Migraine, unspecified, not intractable, without status migrainosus; Z79.899 Other long term (current) drug therapy; Z90.710 Acquired absence of both cervix and uterus; Z88.0 Allergy status to penicillin; Z88.1 Allergy status to other antibiotic agents
CPT/HCPCS: 36415; 71010; 74177; 74249; 76705; 80053; 81001; 82550; 82553; 83605; 83690; 83735; 84100; 84439; 84443; 84484; 85025; 85027; 93005; 93010; 96374; 96375; 99285; G0378; J1335; J2270; J2405; J3010; J3490; J7120; S0164